=== PATIENT | male | born 1950 ===

== ENCOUNTER 2018-12-13 11:43 | Inpatient (IN) | payer OTHER ==
[~2018-12-13] VITALS: Ht 185.4 cm; Wt 95.3 kg
[2018-12-13] MEDS ORDERED: COZAAR100 MG (13:00)
[2018-12-13] MEDS ORDERED: PNEU16DI2 (13:01)
[2018-12-13] MEDS ORDERED: PERCOCET 10-321 EACH (13:01)
--- NOTE | 2018-12-13 13:01 | NUR ---
PTE REFIERE DOLOR PELVICO ,CUADRANTE INFERIOR IZQUIERDA DESDE HACE VARIOS CHI.
--- NOTE | 2018-12-13 13:43 | NUR ---
PACIENTE AL MOMENTO ESTABLE, ALERTA Y ORIENTADO X3; PENDIENTE A RESULTADOS DE LABORATORIO Y RADIOLOGIA, SE CONTINUA MONITOREANDO POR CAMBIOS.
[2018-12-18] MEDS ORDERED: PROTONIX40 MG PO (08:45)
[2018-12-18] MEDS ORDERED: LEVAQUIN750 MG PO (08:45)
== END 2018-12-18 09:47 | disposition home or self-care (01) | DRG 186 ==
LOC: ER 11:43 → SURH 22:22 → MEDJ 22:22
PROVIDERS: ADMIT Internal Medicine
PROC: BW21Y0Z Computerized Tomography (CT Scan) of Abdomen and Pelvis using Other Contrast, Unenhanced and Enhanced (ICD-10-PCS; principal; 2018-12-13)
PROC: B246ZZZ Ultrasonography of Right and Left Heart (ICD-10-PCS; 2018-12-13)
PROC: 4A033R1 Measurement of Arterial Saturation, Peripheral, Percutaneous Approach (ICD-10-PCS; 2018-12-13)
PROC: 3E0F7GC Introduction of Other Therapeutic Substance into Respiratory Tract, Via Natural or Artificial Opening (ICD-10-PCS; 2018-12-13)
PROC: BW25ZZZ Computerized Tomography (CT Scan) of Chest, Abdomen and Pelvis (ICD-10-PCS; 2018-12-14)
DX: J90 Pleural effusion, not elsewhere classified (principal); J18.1 Lobar pneumonia, unspecified organism; K65.9 Peritonitis, unspecified; J11.00 Influenza due to unidentified influenza virus with unspecified type of pneumonia; J98.11 Atelectasis; K57.32 Diverticulitis of large intestine without perforation or abscess without bleeding; J91.8 Pleural effusion in other conditions classified elsewhere; R09.02 Hypoxemia; N20.0 Calculus of kidney; I10 Essential (primary) hypertension; E78.5 Hyperlipidemia, unspecified; K44.9 Diaphragmatic hernia without obstruction or gangrene; Z99.81 Dependence on supplemental oxygen

== ENCOUNTER 2019-03-07 11:35 | Day surgery (SDC) | payer OTHER ==
[~2019-03-07 11:35] MED LIST: COZAAR100 MG; LEVAQUIN750 MG PO; PERCOCET 10-321 EACH; PNEU16DI2; PROTONIX40 MG PO
== END 2019-03-07 18:00 | disposition home or self-care (01) ==
LOC: AMB-ENDOS 11:35
DX: D12.4 Benign neoplasm of descending colon (principal); K57.30 Diverticulosis of large intestine without perforation or abscess without bleeding; K64.1 Second degree hemorrhoids

== ENCOUNTER 2022-07-07 12:04 | Emergency (ER) | payer OTHER ==
[~2022-07-07] VITALS: Ht 185.4 cm; Wt 86.2 kg
[2022-07-07] MEDS ORDERED: AVAPRO150 MG PO (12:22)
== END 2022-07-07 21:16 | disposition home or self-care (01) ==
LOC: ER 12:04
DX: K58.9 Irritable bowel syndrome, unspecified (principal); I10 Essential (primary) hypertension; K57.30 Diverticulosis of large intestine without perforation or abscess without bleeding